=== PATIENT | male | born 1990 | race American Indian/Alaskan Native ===

== ENCOUNTER 2021-11-17 09:19 | Emergency (ER) | payer OTHER ==
[2021-11-17] MEDS ORDERED: diphenhydrAMINE 25 MG CAP PO ONE (09:23)
--- NOTE | 2021-11-17 09:24 | Emergency Department Report ---
ED Allergic Reaction HPI - General Stated complaint: allergic rx Time Seen by Provider: 11/17/21 09:22 - History of Present Illness Initial Comments: 31-year-old male with a past medical history of hypertension presents to the ER today with complaints of possible allergic reaction. Patient states around 8:00 at work he started noticing the eye was itchy all over, then started noticing red bumps on his arms and legs and face. Patient states that he did start to get anxious, and was concerned that his symptoms are related to possible allergic reaction. Patient states that since arriving to the ER, the swelling is improving as well as itching, he is only now having tingling all over, feels shaky and feels like he is having difficulty breathing. He admits that he recently started Levaquin today that was prescribed to him by his urologist. He states that has been having some dental issues, and his PCP is not exactly sure the cause, and started him on antibiotics as a precaution. He states that prior to starting the Levaquin he had been on Bactrim also for about 2 weeks and he took his last dose together with the Levaquin this morning. Other than the antibiotics he denies any other new contacts. Denies any facial swelling, throat swelling, tongue swelling, difficulty swallowing, wheezing or any additional symptoms. MD Complaint: allergic reaction -: Sudden, This morning - Related Data Previous Rx's Medication Instructions Recorded Last Taken Type Famotidine [Pepcid] 20 mg PO BID #10 tablet 11/17/21 Unknown Rx diphenhydrAMINE [Benadryl CAP] 25 mg PO Q6HR PRN #30 capsule 11/17/21 Unknown Rx predniSONE [Deltasone] 20 mg PO BID #10 tab 11/17/21 Unknown Rx Allergies Allergy/AdvReac Type Severity Reaction Status Date / Time No Known Allergies Allergy Verified 11/17/21 09:41 ED Review of Systems ROS: Stated complaint: allergic rx Other details as noted in HPI Comment: All other systems reviewed and negative Constitutional: denies: chills, fever Eyes: denies: eye pain, eye discharge, vision change ENT: denies: ear pain, throat pain Respiratory: shortness of breath. denies: cough, SOB with exertion, SOB at rest, wheezing Cardiovascular: denies: chest pain, palpitations Endocrine: no symptoms reported Gastrointestinal: denies: abdominal pain, nausea, diarrhea, constipation, hematemesis, hematochezia Genitourinary: denies: urgency, dysuria, frequency, hematuria, discharge Musculoskeletal: denies: back pain, joint swelling, arthralgia Skin: rash, pruritus. denies: lesions Neurological: denies: headache, weakness, numbness, paresthesias, confusion, abnormal gait, vertigo Psychiatric: denies: anxiety, depression, auditory hallucinations, visual hallucinations, homicidal thoughts, suicidal thoughts Hematological/Lymphatic: denies: easy bleeding, easy bruising, swollen glands ED Past Medical Hx - Medications Home Medications: Home Medications Medication Instructions Recorded Confirmed Last Taken Type Famotidine [Pepcid] 20 mg PO BID #10 tablet 11/17/21 Unknown Rx diphenhydrAMINE [Benadryl CAP] 25 mg PO Q6HR PRN #30 capsule 11/17/21 Unknown Rx predniSONE [Deltasone] 20 mg PO BID #10 tab 11/17/21 Unknown Rx ED Physical Exam - General General appearance: alert, in no apparent distress, anxious - Head Head exam: Present: atraumatic, normocephalic, normal inspection - Eye Eye exam: Present: normal appearance, PERRL, EOMI Pupils: Present: normal accommodation - ENT ENT exam: Present: normal exam, mucous membranes moist - Neck Neck exam: Present: normal inspection, full ROM. Absent: meningismus - Respiratory Respiratory exam: Present: normal lung sounds bilaterally. Absent: respiratory distress, wheezes, rales, rhonchi - Cardiovascular Cardiovascular Exam: Present: regular rate, normal rhythm, normal heart sounds - GI/Abdominal GI/Abdominal exam: Present: soft. Absent: distended, tenderness, guarding, rebound - Neurological Exam Neurological exam: Present: alert, oriented X3, CN II-XII intact, normal gait - Psychiatric Psychiatric exam: Present: normal affect, normal mood ED Course Vital Signs 11/17/21 09:24 Pulse Rate 92 H Respiratory 18 Rate Blood Pressure 125/82 [Right] O2 Sat by Pulse 100 Oximetry ED Medical Decision Making - Medical Decision Making 0944: Patient appears slightly anxious, but overall is not toxic, ill-appearing and not in any acute pain or respiratory distress. His chest is clear to auscultation. He has no stridor. He has no apparent tongue, lip, throat or any facial swelling. No extremity swelling. He does not have a significant rash. His voice is normal. No drooling or trismus. He is nonhypoxic, tachypneic or tachycardic. This time patient likely has a mild allergic reaction. Patient stable enough to be discharged home with oral medication. Discussed with patient that the allergic reaction could be related to the Levaquin that he took this morning or could be a delayed reaction to the Bactrim. At this point recommend that he do stop taking the Levaquin. The Bactrim he took this morning was his last dose. Recommend that he lists Bactrim and Levaquin as an allergy from now on. Recommend that he follow-up with his urologist and PCP. Patient expressed understanding for instructions and agree with plan. Patient was stable at time of discharge. Critical care attestation.: If time is entered above; I have spent that time in minutes in the direct care of this critically ill patient, excluding procedure time. ED Disposition Clinical Impression: Allergic reaction caused by a drug Disposition: 01 HOME / SELF CARE / HOMELESS Is pt being admited?: No Does the pt Need Aspirin: No Condition: Stable Instructions: Drug Rash, Drug Allergy, [id number] Additional Instructions: Take the Benadryl, Pepcid and the prednisone as prescribed. I recommend that you no longer take the Levaquin. I recommend that you call the urologist and inform him of what happened today and that we instruct you to stop taking the Levaquin. The allergic reaction could be a result from taking a late weekend but it also could be a delayed reaction from the Bactrim. As a precaution he may have to list Levaquin and Bactrim as an allergy. Follow-up with your doctor as discussed. Return to the ER if anything worsens or changes in any way. Prescriptions: diphenhydrAMINE [Benadryl CAP] 25 mg PO Q6HR PRN #30 capsule PRN Reason: Allergic Reaction predniSONE [Deltasone] 20 mg PO BID #10 tab Famotidine [Pepcid] 20 mg PO BID #10 tablet Referrals: PRIMARY CARE, [Referring] - 3-5 Days Forms: Work/School Release Form(ED) Time of Disposition: 09:39
[2021-11-17] MEDS ORDERED: predniSONE 20 MG TAB PO NR (10:00)
[2021-11-17] MEDS ORDERED: FAMOTIDINE 20 MG TAB PO NR (10:00)
[2021-11-17 10:16] VITALS: BP 132/82
== END 2021-11-17 10:17 | disposition home or self-care (01) ==
LOC: ED 09:19
DX: L29.9 Pruritus, unspecified (principal); T36.8X5A Adverse effect of other systemic antibiotics, initial encounter; Y92.89 Other specified places as the place of occurrence of the external cause
CPT/HCPCS: 99282; J7512